=== PATIENT | male | born 1960 | race Caucasian/White ===

== ENCOUNTER → 2020-12-25 | Day surgery (SDC) | payer OTHER ==
[~2020-12-25] MED LIST: ASPIRIN81 MG PO; FENTANYL CITRATE/PF 100MCG/2 ML INJ ONE; LISINOPRIL10 MG PO; MIDAZOLAM HCL 2 MG/2 ML VIAL ONE; PRAVASTATIN SOD40 MG PO; PROPOFOL IV EMULSION 10 MG/ML 20 ML VIAL ONE
[2020-12-25 17:05] VITALS: BP 110/65
== END | disposition home or self-care (01) ==
LOC: OR 11:56
PROVIDERS: ATTEND Internal Medicine Gastroenterology
DX: Z12.11 Encounter for screening for malignant neoplasm of colon (principal); D12.3 Benign neoplasm of transverse colon; D12.4 Benign neoplasm of descending colon; D12.5 Benign neoplasm of sigmoid colon; K57.30 Diverticulosis of large intestine without perforation or abscess without bleeding; K64.8 Other hemorrhoids; I10 Essential (primary) hypertension; Z01.810 Encounter for preprocedural cardiovascular examination; Z01.812 Encounter for preprocedural laboratory examination; Z20.822 Contact with and (suspected) exposure to COVID-19; Z79.82 Long term (current) use of aspirin; Z68.30 Body mass index [BMI] 30.0-30.9, adult
CPT/HCPCS: 45385; 93005; J2250; J2704; J3010; U0002; 45378; 45384